=== PATIENT | female | born 1985 | race Hispanic/Latino ===

== ENCOUNTER 2019-01-20 19:13 | Emergency (ER) | payer SELFPAY ==
--- NOTE | 2019-01-20 19:53 | ER ---
Nurse's Notes [facility] Name: Saira Salcedo Age: 33 yrs Sex: Female : 1985 Arrival Date: 01/20/2019 Time: 19:14 Bed 10 Private MD: Diagnosis: Periapical abscess without sinus;Dental caries Presentation: 01/20 19:19 Presenting complaint: Patient states: Right lower dental pain for one week. Transition la1 of care: patient was not received from another setting of care. Onset of symptoms was January 20, 2019. Risk Assessment: Do you want to hurt yourself or someone else? Patient reports no desire to harm self or others. Initial Sepsis Screen: Does the patient meet any 2 criteria? No. Patient's initial sepsis screen is negative. Does the patient have a suspected source of infection? No. Patient's initial sepsis screen is negative. Care prior to arrival: None. 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 - Social history:: Smoking status: Patient/guardian denies using tobacco. - Ebola Screening: : No symptoms or risks identified at this time. Screenin:44 Abuse screen: Denies threats or abuse. Denies injuries from another. Nutritional la1 screening: No deficits noted. Tuberculosis screening: No symptoms or risk factors identified. Fall Risk None identified. Assessment: 19:43 General: Appears in no apparent distress. Behavior is calm, appropriate for age. Pain: la1 Complains of pain in lower right first molar and lower right second molar. Neuro: Level of Consciousness is awake, alert, obeys commands, Oriented to person, place, time, situation. Cardiovascular: Capillary refill < 3 seconds Patient's skin is warm and dry. Respiratory: Airway is patent Respiratory effort is even, unlabored, Respiratory pattern is regular, symmetrical. GI: No signs and/or symptoms were reported involving the gastrointestinal system. : No signs and/or symptoms were reported regarding the genitourinary system. EENT: Oral mucosa is moist. Good dentition noted. 20:09 Reassessment: Patient is alert, oriented x 3, equal unlabored respirations, skin bb warm/dry/pink. pt verbalized understanding of and agrees to plan of care discharge instructions given pt ambulated with steady gait to exit accompanied by family. Vital Signs: 19:20 Pulse 82; Resp 16; Temp 97.6; Pulse Ox 98% on R/A; Weight 90.72 kg; Height 5 ft. 6 in. la1 (167.64 cm); Pain 9/10; 19:21 BP 102 / 88; la1 19:20 Body Mass Index 32.28 (90.72 kg, 167.64 cm) la1 ED Course: 19:14 Patient arrived in ED. es 19:19 Triage completed. la1 19:20 Arm band placed on left wrist. la1 19:28 Aylin Branch [facility]C [facility] kb 19:28 Liam Morgan MD is Attending Physician. kb 19:44 Call light in reach. la1 19:44 No provider procedures requiring assistance completed. Patient did not have IV access la1 during this emergency room visit. Administered Medications: No medications were administered Outcome: 19:52 Discharge ordered by MD. kb 20:09 Discharged to home ambulatory, with family. bb 20:09 Condition: stable 20:09 Discharge instructions given to patient, Instructed on discharge instructions, follow up and referral plans. medication usage, Demonstrated understanding of instructions, follow-up care, medications, Prescriptions given X 1. 20:10 Patient left the ED. bb Signatures: Aylin Branch FNP-C FNP-Ckb Salyer, Edna es Ballard, Brenda RN RN bb Tony Elliott RN RN la1
--- NOTE | 2019-01-20 19:53 | EDPHYS ---
Physician Documentation [facility] Name: Saira Salcedo Age: 33 yrs Sex: Female : 1985 Arrival Date: 01/20/2019 Time: 19:14 Bed 10 Private MD: ED Physician Liam Morgan HPI: 01/20 22:04 This 33 yrs old Female presents to ER via Ambulatory with complaints of kb Toothache. 22:04 The patient presents with pain, redness, swelling. The problem is located in the lower kb right second bicuspid, lower right first molar and lower right second molar. Onset: The symptoms/episode began/occurred 2 week(s) ago. Duration: The symptoms are continuous. Modifying factors: The symptoms are alleviated by nothing, the symptoms are aggravated by nothing. Associated signs and symptoms: Pertinent positives: pain, redness in area, swelling. Severity of symptoms: At their worst the symptoms were moderate, in the emergency department the symptoms are unchanged. The patient has not experienced similar symptoms in the past. The patient has not recently seen a physician. 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 - Social history:: Smoking status: Patient/guardian denies using tobacco. - Ebola Screening: : No symptoms or risks identified at this time. ROS: 22:00 Constitutional: Negative for fever, chills, and weight loss, Cardiovascular: Negative kb for chest pain, palpitations, and edema, Respiratory: Negative for shortness of breath, cough, wheezing, and pleuritic chest pain, Abdomen/GI: Negative for abdominal pain, nausea, vomiting, diarrhea, and constipation, MS/Extremity: Negative for injury and deformity, Skin: Negative for injury, rash, and discoloration, Neuro: Negative for headache, weakness, numbness, tingling, and seizure. 22:00 ENT: Positive for dental pain. Exam: 22:00 Constitutional: This is a well developed, well nourished patient who is awake, alert, kb and in no acute distress. Head/Face: Normocephalic, atraumatic. Chest/axilla: Normal chest wall appearance and motion. Nontender with no deformity. No lesions are appreciated. Cardiovascular: Regular rate and rhythm with a normal S1 and S2. No gallops, murmurs, or rubs. Normal PMI, no JVD. No pulse deficits. Respiratory: Lungs have equal breath sounds bilaterally, clear to auscultation and percussion. No rales, rhonchi or wheezes noted. No increased work of breathing, no retractions or nasal flaring. Abdomen/GI: Soft, non-tender, with normal bowel sounds. No distension or tympany. No guarding or rebound. No evidence of tenderness throughout. Skin: Warm, dry with normal turgor. Normal color with no rashes, no lesions, and no evidence of cellulitis. MS/ Extremity: Pulses equal, no cyanosis. Neurovascular intact. Full, normal range of motion. Neuro: Awake and alert, GCS 15, oriented to person, place, time, and situation. Cranial nerves II-XII grossly intact. Motor strength 5/5 in all extremities. Sensory grossly intact. Cerebellar exam normal. Normal gait. 22:00 ENT: Dental exam: dental caries, that is moderate, specifically in the lower right second bicuspid (#29), lower right first molar (#30), lower right second molar (#31) and lower right third molar (#32), gum swelling, that is moderate, specifically in the lower right second bicuspid (#29), lower right first molar (#30) and lower right second molar (#31), pain, that is moderate, specifically in the lower right second bicuspid (#29), lower right first molar (#30) and lower right second molar (#31). Vital Signs: 19:20 Pulse 82; Resp 16; Temp 97.6; Pulse Ox 98% on R/A; Weight 90.72 kg; Height 5 ft. 6 in. la1 (167.64 cm); Pain 9/10; 19:21 BP 102 / 88; la1 19:20 Body Mass Index 32.28 (90.72 kg, 167.64 cm) la1 MDM: 19:38 Patient medically screened. kb 21:59 Data reviewed: vital signs, nurses notes. Data interpreted: Pulse oximetry: on room air kb is 98 %. Interpretation: normal. Counseling: I had a detailed discussion with the patient and/or guardian regarding: the historical points, exam findings, and any diagnostic results supporting the discharge/admit diagnosis, the need for outpatient follow up, a dentist, to return to the emergency department if symptoms worsen or persist or if there are any questions or concerns that arise at home. Administered Medications: No medications were administered Disposition: 01/21 06:53 Co-signature as Attending Physician, Liam Morgan MD I agree with the assessment and tw4 plan of care. Disposition: 01/20/19 19:52 Discharged to Home. Impression: Periapical abscess without sinus, Dental caries. - Condition is Stable. - Discharge Instructions: Dental Pain, [id number], Dental Abscess, [id number]. - Prescriptions for Augmentin 875- 125 mg Oral Tablet - take 1 tablet by ORAL route every 12 hours for 7 days; 14 tablet. - Medication Reconciliation Form, Thank You Letter, Antibiotic Education, Prescription Opioid Use form. - Follow up: Emergency Department; When: As needed; Reason: Worsening of condition. Follow up: Private Physician; When: 2 - 3 days; Reason: Recheck today's complaints, Continuance of care, Re-evaluation by your physician. Signatures: Aylin Branch, MILL MANAGER-C MILL MANAGER-Ckb Dai Brantley RN RN bb Attema, Lee, RN RN la1 Liam Morgan MD MD tw4 Corrections: (The following items were deleted from the chart) 01/20 19:52 19:52 01/20/2019 19:52 Discharged to Home. Impression: Periapical abscess without kb sinus. Condition is Stable. Forms are Medication Reconciliation Form, Thank You Letter, Antibiotic Education, Prescription Opioid Use. Follow up: Emergency Department; When: As needed; Reason: Worsening of condition. Follow up: Private Physician; When: 2 - 3 days; Reason: Recheck today's complaints, Continuance of care, Re-evaluation by your physician. kb 20:10 19:52 01/20/2019 19:52 Discharged to Home. Impression: Periapical abscess without bb sinus; Dental caries. Condition is Stable. Forms are Medication Reconciliation Form, Thank You Letter, Antibiotic Education, Prescription Opioid Use. Follow up: Emergency Department; When: As needed; Reason: Worsening of condition. Follow up: Private Physician; When: 2 - 3 days; Reason: Recheck today's complaints, Continuance of care, Re-evaluation by your physician. kb
== END 2019-01-20 20:10 | disposition home or self-care (01) ==
LOC: ER 19:13
DX: K04.7 Periapical abscess without sinus (principal); K02.9 Dental caries, unspecified
CPT/HCPCS: 99282

== ENCOUNTER 2021-10-28 21:12 | Emergency (ER) | payer OTHER, SELFPAY ==
[2021-10-28 21:56] LABS: Absolute Lymphocytes (CBC) 2.9 K/uL (0.7-4.9); Hematocrit 38.7 % (36.0-45.0); Lymphocytes % 25.7 % (15.3-44.8); MPV 6.8 fL (7.6-11.3); RBC Red Blood Cell Count 4.69 M/uL (3.86-4.86)
[2021-10-28 22:26] LABS: Potassium 3.6 mmol/L (3.5-5.1)
[2021-10-28 22:42] LABS: Urine Specific Gravity/Preg >1.030 (1.005-1.030)
[2021-10-28 22:47] LABS: Urine Bacteria >50 /HPF (<20); Urine Mucus 2+ /HPF (NONE SEEN)
--- NOTE | 2021-10-28 23:22 | EDPHYS ---
Physician Documentation [facility] Name: Saira Salcedo Age: 36 yrs Sex: Female : 1985 Arrival Date: 10/28/2021 Time: 21:15 Bed 5 Private MD: ED Physician Jeremy Worthy HPI: 10/28 21:36 This 36 yrs old Female presents to ER via Ambulatory with complaints of abd rn pain. 21:36 The patient presents to the emergency department with abdominal pain, of the left lower rn quadrant, that started 2 day(s) ago, described as crampy. The estimated gestational age is 6 weeks. course: care: none, Leakage of Fluid: none appreciated, Ultrasound: the patient had an ultrasound. Previous pregnancies: in previous pregnancies patient has had. The patient has experienced similar episodes in the past. The patient has been recently seen at the [facility] Emergency Department. Pt reports is at approx 6 weeks gestation by LMP, returns for repeat bloodwork and u/s. States seen here 2 days ago and told couldn't visualize anything on that day. Unable to f/u with OB in timely fashion and told to come back here for reeval. Denies vaginal bleeding or leakage of fluid. Has had 2 miscarriages in past but no ectopic.. 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 - Social history:: Smoking status: Patient denies any tobacco usage or history of. - Family history:: not pertinent. - Hospitalizations: : No recent hospitalization is reported. ROS: 21:40 Constitutional: Negative for fever, chills, and weight loss, Eyes: Negative for injury, rn pain, redness, and discharge, Neck: Negative for injury, pain, and swelling, Cardiovascular: Negative for chest pain, palpitations, and edema, Respiratory: Negative for shortness of breath, cough, wheezing, and pleuritic chest pain, Abdomen/GI: + left abd pain Back: Negative for injury and pain, : Negative for injury, bleeding, discharge, and swelling, MS/Extremity: Negative for injury and deformity, Skin: Negative for injury, rash, and discoloration, Neuro: Negative for headache, weakness, numbness, tingling, and seizure. Exam: 21:40 Constitutional: This is a well developed, well nourished patient who is awake, alert, rn and in no acute distress. Head/Face: Normocephalic, atraumatic. Eyes: Periorbital areas with no swelling, redness, or edema. Cardiovascular: Regular rate and rhythm. No pulse deficits. Respiratory: No increased work of breathing, no retractions or nasal flaring. Abdomen/GI: Soft, non-tender, no peritoneal signs Skin: Warm, dry MS/ Extremity: Pulses equal, no cyanosis Neuro: Awake and alert, GCS 15 Vital Signs: 21:21 BP 126 / 90; Pulse 97; Resp 20 S; Temp 98.1; Pulse Ox 99% on R/A; Weight 119.29 kg; vc1 Height 5 ft. 7 in. (170.18 cm); Pain 8/10; 21:42 BP 117 / 100; Resp 18; Pulse Ox 100% on R/A; Pain 4/10; tw5 22:39 BP 120 / 76; Pulse 88; Resp 20 S; Pulse Ox 98% on R/A; as6 23:34 BP 103 / 75; Pulse 93; Resp 18; Pulse Ox 97% on R/A; tw5 21:21 Body Mass Index 41.19 (119.29 kg, 170.18 cm) vc1 MDM: 21:28 Patient medically screened. rn 23:18 Differential diagnosis: ectopic , UTI. Data reviewed: vital signs, nurses rn notes, old medical records, lab test result(s), radiologic studies, ultrasound, and as a result, I will discharge patient. Counseling: I had a detailed discussion with the patient and/or guardian regarding: the historical points, exam findings, and any diagnostic results supporting the discharge/admit diagnosis, lab results, radiology results, the need for outpatient follow up, to return to the emergency department if symptoms worsen or persist or if there are any questions or concerns that arise at home. Special discussion: I discussed with the patient/guardian in detail that at this point there is no indication for admission to the hospital. It is understood, however, that if the symptoms persist or worsen the patient needs to return immediately for re-evaluation. Based on the history and exam findings, there is no indication for further emergent testing or inpatient evaluation. I discussed with the patient/guardian the need to see the OB Gyne specialist for further evaluation of the symptoms. ED course: Pt has a second medical record, was here 2 days ago. HCG was 151 2 days ago, now 340, u/s still doesn't show intrauterine but also no signs of ectopic. Could be earlier than originally thought. Still needs OB f/u given previous abortions, and return precautions given and understood. Will put on abx for UTI. . 10/28 21:30 Order name: Abo/rh Typing; Complete Time: :53 rn 10/28 21:30 Order name: Basic Metabolic Panel; Complete Time: :41 rn 10/28 21:30 Order name: CBC with Diff; Complete Time: : rn 10/28 21:30 Order name: Quantitative Hcg; Complete Time: 22: rn 10/28 21:30 Order name: Urine Microscopic Only; Complete Time: :53 rn 10/28 22:12 Order name: Test Urine - POC; Complete Time: :53 mb4 10/28 21:30 Order name: IV Saline Lock; Complete Time: :45 rn 10/28 21:30 Order name: Labs collected and sent; Complete Time: :45 rn 10/28 21:30 Order name: NPO; Complete Time: :45 rn 10/28 21:30 Order name: Urine Dipstick-Ancillary (obtain specimen); Complete Time: 22:08 rn 10/28 21:30 Order name: Urine Test (obtain specimen); Complete Time: 22:09 rn 10/28 21:30 Order name: US Transvaginal Ob rn 10/28 22:48 Order name: Urine Culture EDMS Administered Medications: 23:34 Drug: Macrobid (nitrofurantoin) 100 mg Route: PO; tw5 23:35 Follow up: Response: No adverse reaction; Medication administered at discharge. 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 States seen here 2 days ago and told couldn't visualize anything on that day.. rn
--- NOTE | 2021-10-28 23:22 | ER ---
Nurse's Notes [facility] Name: Saira Salcedo Age: 36 yrs Sex: Female : 1985 Arrival Date: 10/28/2021 Time: 21:15 Bed 5 Private MD: Diagnosis: UTI/ Urinary tract infection, site not specified;Less than 8 weeks gestation of Presentation: 10/28 21:21 Chief complaint: Patient states: I'm 6 weeks . I'm having sharp cramping pain vc1 just on my left side. Its constant pain but then a sharp pain comes. I was here 2 days ago and they couldn't find anything on the ultrasound. They told me to follow up with my DrDorothy and to come back if the pain gets worse so they could check for an ectopic . Coronavirus screen: Vaccine status: Patient reports receiving the 2nd dose of the covid vaccine. Pfizer At this time, the client does not indicate any symptoms associated with coronavirus-19. Ebola Screen: No symptoms or risks identified at this time. Initial Sepsis Screen: Does the patient meet any 2 criteria? HR > 90 bpm. No. Patient's initial sepsis screen is negative. Does the patient have a suspected source of infection? No. Patient's initial sepsis screen is negative. Risk Assessment: Do you want to hurt yourself or someone else? Patient reports no desire to harm self or others. Onset of symptoms was October 26, 2021. 21:21 Method Of Arrival: Ambulatory vc1 21:21 Acuity: AMMY 3 vc1 21:25 Chief complaint:. vc1 Triage Assessment: 21:24 General: Appears uncomfortable, Behavior is calm, cooperative, appropriate for age. vc1 Pain: Complains of pain in left lower quadrant Pain does not radiate. Pain currently is 8 out of 10 on a pain scale. Quality of pain is described as crampy, sharp. Neuro: No deficits noted. Cardiovascular: No deficits noted. GI: Reports lower abdominal pain, nausea. 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 - Social history:: Smoking status: Patient denies any tobacco usage or history of. - Family history:: not pertinent. - Hospitalizations: : No recent hospitalization is reported. Screenin:46 Abuse screen: Denies threats or abuse. Denies injuries from another. Nutritional as6 screening: No deficits noted. Tuberculosis screening: No symptoms or risk factors identified. Fall Risk None identified. Assessment: 21:42 General: Appears in no apparent distress. uncomfortable, Behavior is calm, cooperative, tw5 appropriate for age, Reports "I feel a lot of pressure from being , but now it is cramping.". Pain: Pain currently is 4 out of 10 on a pain scale. at worst was 7 out of 10 on a pain scale. Quality of pain is described as crampy. Neuro: No deficits noted. Cardiovascular: Heart tones S1 S2 present. Respiratory: Airway is patent Trachea midline Respiratory effort is even, unlabored. GI: Abdomen is obese, Bowel sounds present X 4 quads. Abd is soft X 4 quads Abdomen is tender to palpation in left upper quadrant and left lower quadrant. Derm: No deficits noted. Musculoskeletal: No deficits noted. 22:21 General: US at the bedside. as6 23:34 Reassessment: Patient appears in no apparent distress at this time. No changes from tw5 previously documented assessment. Vital Signs: 21:21 BP 126 / 90; Pulse 97; Resp 20 S; Temp 98.1; Pulse Ox 99% on R/A; Weight 119.29 kg; vc1 Height 5 ft. 7 in. (170.18 cm); Pain 8/10; 21:42 BP 117 / 100; Resp 18; Pulse Ox 100% on R/A; Pain 4/10; tw5 22:39 BP 120 / 76; Pulse 88; Resp 20 S; Pulse Ox 98% on R/A; as6 23:34 BP 103 / 75; Pulse 93; Resp 18; Pulse Ox 97% on R/A; tw5 21:21 Body Mass Index 41.19 (119.29 kg, 170.18 cm) vc1 ED Course: 21:15 Patient arrived in ED. ja2 21:24 Triage completed. vc1 21:24 Arm band placed on right wrist. vc1 21:28 Sudarshan Davila RN is Primary Nurse. as6 21:28 Jeremy Worthy MD is Attending Physician. rn 21:41 Initial lab(s) drawn, by ED staff, sent to lab. Inserted saline lock: 20 gauge in right tw5 antecubital area, using aseptic technique. Blood collected. 21:42 Patient has correct armband on for positive identification. Placed in gown. Bed in low tw5 position. Call light in reach. Side rails up X 1. Pulse ox on. NIBP on. Door closed. Moved to private room. Warm blanket given. Verbal reassurance given. 21:45 Abo/rh Typing Sent. as6 21:45 Basic Metabolic Panel Sent. as6 21:45 CBC with Diff Sent. as6 21:45 Quantitative Hcg Sent. as6 21:46 Placed in gown. Bed in low position. Call light in reach. Side rails up X2. Pulse ox as6 on. NIBP on. Warm blanket given. 22:08 Urine Microscopic Only Sent. as6 22:17 Basic Metabolic Panel Sent. as6 22:17 Quantitative Hcg Sent. as6 22:32 US Transvaginal Ob In Process Unspecified. EDMS 23:34 Diet: Patient given snack. tw5 23:36 Urine Culture Sent. tw5 23:36 No provider procedures requiring assistance completed. IV discontinued, intact, tw5 bleeding controlled, No redness/swelling at site. Pressure dressing applied. Administered Medications: 23:34 Drug: Macrobid (nitrofurantoin) 100 mg Route: PO; tw5 23:35 Follow up: Response: No adverse reaction; Medication administered at discharge. tw5 Outcome: 23:21 Discharge ordered by . rn 23:36 Discharged to home ambulatory. tw5 23:36 Condition: good 23:36 Discharge instructions given to patient, Instructed on discharge instructions, follow up and referral plans. Demonstrated understanding of instructions, follow-up care, medications, Prescriptions given X 23:37 Patient left the ED. tw5 Signatures: Dispatcher [employer] EDMS Jeremy Worthy MD MD rn Alexander, Jessica ja2 Wood, Tiffany tw5 Sudarshan Davila RN RN as6 Violeta Lopes RN RN vc1 Corrections: (The following items were deleted from the chart) 21:27 21:21 Chief complaint: Patient states: I'm having sharp cramping pain just on my left vc1 side. Its constant pain but then a sharp pain comes. vc1
[2021-10-28] MEDS ORDERED: NITROFURAN MACRO 100 MG CAP PO ONE (23:33)
[2021-10-29 01:56] VITALS: TEMP 98.1
[2021-10-29 02:00] VITALS: BP 103/75; O2SAT 97
[2021-10-29 11:15] LABS: Urine Blood Negative (Negative); Urine Glucose Negative (Negative); Urine Protein Negative (Negative); Urine Specific Gravity >=1.030 (1.005-1.030); Urine pH 5.5 (5.0-7.0)
--- NOTE | 2021-10-29 11:44 | RAD REPORT ---
EXAM DESCRIPTION: US - Transvaginal OB - 10/28/2021 11:10 pm CLINICAL HISTORY: Left abd cramping TECHNIQUE: Real-time complete transabdominal and transvaginal pelvic ultrasound with image documenta tion. Transvaginal imaging was used for better evaluation of the endometrium and adnexa. COMPARISON: No relevant prior studies available. FINDINGS: Uterus/cervix: The uterus is anteverted and measures 12.4 x 5 x 5.7 cm. The endometria l stripe measures 12 mm in thickness. No myometrial mass. Right ovary: The right ovary measures 3.8 x 3.1 x 4 cm. There is a 2 x 2.3 x 2.4 cm anechoic/simple cyst. Normal blood flow. Left ovary: The left ovary is obscured by bowel gas. Free fluid: Small amount of free fluid in the cul-de-sac. Bladder: Unremarkable as visualized. Wall is normal thickness for degree of distention. IMPRESSION: 2.4 cm simple right ovarian cyst. The left ovary is not visualized. No adnexal mass. No follow-up imaging is recommended. Reference: Radiology 2019 Nov;293(2):359-371 Electronically signed by: Tatiana Dougherty MD 10/28/2021 10:59 PM PHP CONSULTANT Due to temporary technical issues with the PACS/Fluency reporting system, reports are being signed by the in house radiologist without review as a courtesy to ensure prompt reporting. The interpreting r adiologist is fully responsible for the content of the report.
== END 2021-10-28 23:37 | disposition home or self-care (01) ==
LOC: ER 21:12
DX: O23.41 Unspecified infection of urinary tract in pregnancy, first trimester (principal); N39.0 Urinary tract infection, site not specified; Z3A.01 Less than 8 weeks gestation of pregnancy
CPT/HCPCS: 36415; 76817; 80048; 81003; 81015; 81025; 84702; 85025; 86900; 86901; 87086; 87088; 99284